=== PATIENT | male | born 1950 | race Caucasian/White ===

== ENCOUNTER 2021-07-14 09:19 | Inpatient (IN) ==
[2021-07-14 10:40] LABS: Mean Corpuscular HGB Conc 33.6 g/dL (31.6-35.5); Mean Corpuscular Hemoglobin 34.4 pg (28.0-33.3); Mean Corpuscular Volume 102.2 fL (83.0-100.0); Red Cell Distribution Width 15.7 % (11.5-14.5)
[2021-07-14 10:42] LABS: Hematocrit 22.9 % (37.5-50.1); Hemoglobin 7.7 g/dL (12.9-16.9); Immature Platelets 12.3 % (1.1-6.1); Red Blood Count 2.24 M/mcL (4.19-5.50); White Blood Count 1.4 K/mcL (4.3-11.1)
[2021-07-14 10:47] LABS: Platelet Count 6 K/mcL (140-400)
[2021-07-14 10:51] LABS: BUN/Creatinine Ratio 16 (6-26); Blood Urea Nitrogen 14 mg/dL (8-23); Calcium 9.4 mg/dL (8.6-10.3); Carbon Dioxide 26 mEq/L (23-29); Chloride 101 mEq/L (98-107); Glucose 125 mg/dL (70-105); Osmolality,Calculated 282 (280-300); Potassium 3.8 mEq/L (3.5-5.1); Sodium 135 mEq/L (136-145); eGFR For African Americans > 60 (> 60); eGFR For Non-African Americans > 60 (> 60)
[2021-07-14] MEDS ORDERED: 0.9 % Sodium Chloride 250 ML ONE (11:17)
[2021-07-14] MEDS ORDERED: Piperacillin/Tazobactam 3.375 GM in 0.9 % Sodium Chloride Mini Bag 100 ML IVPB ONE (13:27)
[2021-07-14] MEDS ORDERED: 0.9 % Sodium Chloride 1,000 ML IVC ONE (13:27)
[2021-07-14 13:39] LABS: Alanine Aminotransferase 14 Units/L (7-52); Albumin 4.3 g/dL (3.5-5.7); Albumin/Globulin Ratio 1.6 (1.1-2.2); Alkaline Phosphatase 78 Units/L (34-104); Aspartate Amino Transferase 12 Units/L (13-39); Bilirubin,Indirect 0.4 mg/dL (0.0-1.0); Bilirubin,Total 0.4 mg/dL (0.3-1.0); Globulin 2.7 g/dL (2.4-3.5); Lipase 5 Units/L (11-82)
[2021-07-14 14:00] LABS: Bilirubin,Urine Negative (Negative); Blood,Urine Trace (Negative); Clarity,Urine Clear (Clear); Color,Urine Yellow (Yellow); Glucose,Urine (UA) Normal (Normal); Hyaline Casts,Urine Moderate per lpf (None Seen); Ketones,Urine Negative (Negative); Leukocyte Esterase,Urine Negative (Negative); Mucus,Urine Few per lpf (None-Few); Nitrite,Urine Negative (Negative); PH,Urine 6.5 pH Units (5.0-8.0); Protein,Urine Trace mg/dL (Neg-Trace); Specific Gravity,Urine 1.019 (1.010-1.025); Urobilinogen,Urine Normal (Normal); WBC,Urine 0-3 per hpf (0-3)
[2021-07-14] MEDS ORDERED: MOM Conc 10 ML UD.LIQ PO PRN (14:31)
[2021-07-14] MEDS ORDERED: Ondansetron ODT 4 MG TAB.RAPDIS SL PRN (14:31)
[2021-07-14] MEDS ORDERED: Naloxone 0.4 MG/ML INJ IVP PRN (14:31)
[2021-07-14] MEDS ORDERED: Melatonin 3 MG TABLET PO PRN (14:31)
[2021-07-14] MEDS ORDERED: Mag Hydrox/Al Hydrox/Simeth 30 ML UDC PO PRN (14:31)
[2021-07-14] MEDS: Levalbuterol Neb 1.25 MG/3 ML IH SCH ×3 (15:48→20:06)
[2021-07-14] MEDS: Vancomycin 1,250 MG/262.5 ML IV.SOLN IVPB SCH (16:26)
[2021-07-14] MEDS: MethylPREDNISolone 40 MG/ML VIAL IVP SCH (18:10)
[2021-07-15] MEDS: MethylPREDNISolone 40 MG/ML VIAL IVP SCH ×3 (00:17→15:05)
[2021-07-15] MEDS: Piperacillin/Tazobactam 3.375 GM in 0.9 % Sodium Chloride Mini Bag 100 ML IVPB SCH ×3 (00:18→16:20)
[2021-07-15 01:23] LABS: Adenovirus Not Detected (Not Detect); Bordetella Pertussis Not Detected (Not Detect); Chlamydophila pneumoniae Not Detected (Not Detect); Coronavirus 229E Not Detected (Not Detect); Coronavirus HKU1 Not Detected (Not Detect); Coronavirus NL63 Not Detected (Not Detect); Coronavirus OC43 Not Detected (Not Detect); Human Metapneumovirus Not Detected (Not Detect); Human Rhinovirus/Enterovirus Not Detected (Not Detect); Influenza A Subtype 2009 H1 Not Detected (Not Detect); Influenza B Not Detected (Not Detect); Mycoplasma pneumoniae Not Detected (Not Detect); Parainfluenza Virus 1 Not Detected (Not Detect); Parainfluenza Virus 2 Not Detected (Not Detect); Parainfluenza Virus 3 Not Detected (Not Detect); Parainfluenza Virus 4 Not Detected (Not Detect); Respiratory Syncytial Virus Not Detected (Not Detect); SARS-CoV-2 Not Detected (Not Detect)
[2021-07-15 01:30] LABS: Mean Corpuscular Hemoglobin 33.7 pg (28.0-33.3); Red Blood Count 1.81 M/mcL (4.19-5.50); Red Cell Distribution Width 15.5 % (11.5-14.5)
[2021-07-15 01:32] LABS: Hemoglobin 6.1 g/dL (12.9-16.9); Immature Platelets 2.8 % (1.1-6.1); Lymphocytes # 0.3 K/mcL (0.6-4.6); Lymphocytes % 44.4 %; Mean Corpuscular HGB Conc 33.9 g/dL (31.6-35.5); Mean Corpuscular Volume 99.4 fL (83.0-100.0); Mean Platelet Volume 11.2 fL (9.4-12.4); Monocytes # 0.2 K/mcL (0.0-1.3); Monocytes % 23.6 %; Neutrophils # 0.2 K/mcL (1.6-8.9); Nucleated Red Blood Cells 2.8 /100 WBC (0)
[2021-07-15 01:43] LABS: Platelet Count 29 K/mcL (140-400); White Blood Count 0.7 K/mcL (4.3-11.1)
[2021-07-15 02:01] LABS: Platelet Estimate Marked Decrease (Normal)
[2021-07-15 02:02] LABS: Microcytosis Present (Not Present)
[2021-07-15] MEDS ORDERED: 0.9 % Sodium Chloride 250 ML IVC SCH (02:15)
[2021-07-15 02:46] LABS: Alanine Aminotransferase 12 Units/L (7-52); Albumin 3.7 g/dL (3.5-5.7); Albumin/Globulin Ratio 1.5 (1.1-2.2); Alkaline Phosphatase 65 Units/L (34-104); Aspartate Amino Transferase 13 Units/L (13-39); BUN/Creatinine Ratio 18 (6-26); Bilirubin,Total 0.3 mg/dL (0.3-1.0); Blood Urea Nitrogen 14 mg/dL (8-23); Calcium 8.6 mg/dL (8.6-10.3); Carbon Dioxide 21 mEq/L (23-29); Chloride 103 mEq/L (98-107); Globulin 2.4 g/dL (2.4-3.5); Glucose 201 mg/dL (70-105); Osmolality,Calculated 284 (280-300); Potassium 3.6 mEq/L (3.5-5.1); Sodium 134 mEq/L (136-145); Total Protein 6.1 g/dL (6.4-8.9); eGFR For African Americans > 60 (> 60); eGFR For Non-African Americans > 60 (> 60)
[2021-07-15] MEDS: Vancomycin 1,250 MG/262.5 ML IV.SOLN IVPB SCH ×2 (03:14→15:16)
[2021-07-15] MEDS: Levalbuterol Neb 1.25 MG/3 ML IH SCH ×4 (03:53→20:14)
[2021-07-15] MEDS: Acetaminophen 325 MG TABLET PO PRN ×2 (04:27→20:20)
[2021-07-15] MEDS ORDERED: Isovue-370 500 ML BOTTLE IVP ONE ×2 (08:53)
[2021-07-15] MEDS ORDERED: Isovue-370 500 ML BOTTLE PO ONE (09:10)
[2021-07-15 09:43] LABS: Red Cell Distribution Width 17.2 % (11.5-14.5)
[2021-07-15 09:45] LABS: Eosinophils % 0.7 %; Hematocrit 23.2 % (37.5-50.1); Hemoglobin 7.9 g/dL (12.9-16.9); Immature Platelets 4.5 % (1.1-6.1); Lymphocytes % 74.1 %; Mean Corpuscular HGB Conc 34.1 g/dL (31.6-35.5); Mean Corpuscular Hemoglobin 32.8 pg (28.0-33.3); Mean Corpuscular Volume 96.3 fL (83.0-100.0); Mean Platelet Volume 10.3 fL (9.4-12.4); Monocytes % 2.8 %; Neutrophils # 0.3 K/mcL (1.6-8.9); Nucleated Red Blood Cells 2.1 /100 WBC (0); Red Blood Count 2.41 M/mcL (4.19-5.50); Segmented Neutrophils % 22.4 %; White Blood Count 1.4 K/mcL (4.3-11.1)
[2021-07-15 09:55] LABS: Platelet Count 30 K/mcL (140-400)
[2021-07-15 10:14] LABS: Reactive Lymphocytes Present (Not Present)
[2021-07-15 10:17] LABS: Platelet Estimate Marked Decrease (Normal)
[2021-07-16] MEDS: MethylPREDNISolone 40 MG/ML VIAL IVP SCH ×2 (01:13→09:08)
[2021-07-16] MEDS: Piperacillin/Tazobactam 3.375 GM in 0.9 % Sodium Chloride Mini Bag 100 ML IVPB SCH ×2 (01:14→09:08)
[2021-07-16] MEDS: Levalbuterol Neb 1.25 MG/3 ML IH SCH ×3 (04:29→15:17)
[2021-07-16 04:37] LABS: Nucleated Red Blood Cells 2.4 /100 WBC (0); Red Cell Distribution Width 17.8 % (11.5-14.5)
[2021-07-16 04:39] LABS: Hematocrit 20.5 % (37.5-50.1); Immature Platelets 4.6 % (1.1-6.1); Lymphocytes # 0.9 K/mcL (0.6-4.6); Mean Corpuscular HGB Conc 34.1 g/dL (31.6-35.5); Mean Corpuscular Hemoglobin 32.7 pg (28.0-33.3); Mean Corpuscular Volume 95.8 fL (83.0-100.0); Red Blood Count 2.14 M/mcL (4.19-5.50); White Blood Count 1.3 K/mcL (4.3-11.1)
[2021-07-16 04:46] LABS: BUN/Creatinine Ratio 14 (6-26); Blood Urea Nitrogen 17 mg/dL (8-23); Carbon Dioxide 24 mEq/L (23-29); Chloride 104 mEq/L (98-107); Glucose 131 mg/dL (70-105); Osmolality,Calculated 287 (280-300); Platelet Count 20 K/mcL (140-400); Potassium 4.1 mEq/L (3.5-5.1); Sodium 137 mEq/L (136-145); eGFR For African Americans > 60 (> 60); eGFR For Non-African Americans > 60 (> 60)
[2021-07-16 07:53] LABS: Neutrophils # 0.3 K/mcL (1.6-8.9)
[2021-07-16 07:55] LABS: Platelet Estimate Marked Decrease (Normal); Reactive Lymphocytes Present (Not Present)
[2021-07-16 07:57] LABS: Anisocytosis 1+ (Not Present)
[2021-07-16] MEDS: Acetaminophen 325 MG TABLET PO PRN (12:18)
[2021-07-16 12:19] VITALS: BP 147/85; PULSE 76; TEMP 97.2; O2SAT 98
[2021-07-16] MEDS ORDERED: Budesonide/Formoterol 160/4.5 1 PUFF INH IH SCH (22:00)
== END 2021-07-16 16:00 | disposition home or self-care (01) | DRG 872 ==
LOC: EMEROOARM 09:19 → 3BNU 09:19 → 3NENU 14:31 → SUATTDRO 14:58 → 3NENU 15:45
PROVIDERS: ADMIT Internal Medicine; ATTEND Registered Nurse

== ENCOUNTER 2021-08-21 08:56 | Inpatient (IN) ==
[2021-08-21] MEDS ORDERED: Piperacillin/Tazobactam 3.375 GM in 0.9 % Sodium Chloride Mini Bag 100 ML IVPB ONE (10:05)
[2021-08-21] MEDS ORDERED: Vancomycin 1,250 MG/262.5 ML IV.SOLN IVPB ONE (10:15)
[2021-08-21 10:37] LABS: Hematocrit 19.4 % (37.5-50.1); Hemoglobin 6.5 g/dL (12.9-16.9); Lymphocytes # 0.4 K/mcL (0.6-4.6); Lymphocytes % 62.7 %; Mean Corpuscular HGB Conc 33.5 g/dL (31.6-35.5); Mean Corpuscular Hemoglobin 30.5 pg (28.0-33.3); Mean Corpuscular Volume 91.1 fL (83.0-100.0); Mean Platelet Volume 9.7 fL (9.4-12.4); Monocytes # 0.2 K/mcL (0.0-1.3); Monocytes % 33.9 %; Red Blood Count 2.13 M/mcL (4.19-5.50); Red Cell Distribution Width 16.6 % (11.5-14.5); Segmented Neutrophils % 3.4 %
[2021-08-21 10:43] LABS: Platelet Count 12 K/mcL (140-400); White Blood Count 0.6 K/mcL (4.3-11.1)
[2021-08-21] MEDS ORDERED: *HR* OxyCODONE/APAP 5/325 TABLET PO ONE (10:45)
[2021-08-21 11:05] LABS: BUN/Creatinine Ratio 29 (6-26); Blood Urea Nitrogen 38 mg/dL (8-23); Calcium 8.8 mg/dL (8.6-10.3); Carbon Dioxide 23 mEq/L (23-29); Chloride 91 mEq/L (98-107); Glucose 141 mg/dL (70-105); Osmolality,Calculated 273 (280-300); Potassium 4.3 mEq/L (3.5-5.1); Sodium 126 mEq/L (136-145); eGFR For African Americans > 60 (> 60); eGFR For Non-African Americans 55 (> 60)
[2021-08-21 11:10] LABS: Troponin I 0.15 ng/mL (< 0.04)
[2021-08-21 11:15] LABS: Platelet Estimate Marked Decrease (Normal); Reactive Lymphocytes Present (Not Present)
[2021-08-21] MEDS: *HR* FentaNYL PATCH 25 MCG PATCH TD SCH (11:44)
[2021-08-21] MEDS ORDERED: 0.9 % Sodium Chloride 1,000 ML IVC ONE (11:48)
[2021-08-21] MEDS ORDERED: 0.9 % Sodium Chloride 500 ML IVC ONE (12:07)
[2021-08-21] MEDS ORDERED: Naloxone 0.4 MG/ML INJ IVP PRN (12:19)
[2021-08-21] MEDS ORDERED: Ondansetron 4 MG/2 ML VIAL IVP PRN (12:19)
[2021-08-21] MEDS ORDERED: Acetaminophen 325 MG TABLET PO PRN (12:19)
[2021-08-21] MEDS: *HR* OxyCODONE Immed Rel 5 MG TABLET PO PRN (16:33)
[2021-08-21] MEDS ORDERED: Piperacillin/Tazobactam 3.375 GM in 0.9 % Sodium Chloride Mini Bag 100 ML IVPB SCH (19:00)
[2021-08-21] MEDS ORDERED: 0.9 % Sodium Chloride 250 ML ONE (19:45)
[2021-08-22] MEDS ORDERED: Piperacillin/Tazobactam 3.375 GM in 0.9 % Sodium Chloride Mini Bag 100 ML IVPB SCH (01:00)
[2021-08-22] MEDS: *HR* OxyCODONE Immed Rel 5 MG TABLET PO PRN ×3 (06:39→21:55)
[2021-08-22 06:52] LABS: Hematocrit 22.6 % (37.5-50.1); Hemoglobin 7.6 g/dL (12.9-16.9); Immature Granulocytes % 1.9 % (0-4); Immature Platelets 3.3 % (1.1-6.1); Lymphocytes % 67.3 %; Mean Corpuscular HGB Conc 33.6 g/dL (31.6-35.5); Mean Corpuscular Hemoglobin 30.6 pg (28.0-33.3); Mean Corpuscular Volume 91.1 fL (83.0-100.0); Mean Platelet Volume 8.5 fL (9.4-12.4); Monocytes % 28.8 %; Red Blood Count 2.48 M/mcL (4.19-5.50); Red Cell Distribution Width 16.3 % (11.5-14.5)
[2021-08-22 07:11] LABS: BUN/Creatinine Ratio 35 (6-26); Blood Urea Nitrogen 39 mg/dL (8-23); Calcium 8.7 mg/dL (8.6-10.3); Carbon Dioxide 24 mEq/L (23-29); Chloride 96 mEq/L (98-107); Glucose 148 mg/dL (70-105); Magnesium 1.6 mg/dL (1.6-2.6); Osmolality,Calculated 284 (280-300); Phosphorous 3.8 mg/dL (2.7-4.5); Potassium 3.8 mEq/L (3.5-5.1); Sodium 131 mEq/L (136-145); eGFR For African Americans > 60 (> 60); eGFR For Non-African Americans > 60 (> 60)
[2021-08-22] MEDS ORDERED: Perflutren Lipid Microsphere 1.3 ML in 0.9 % Sodium Chloride 8.7 ML IVP PRN (07:36)
[2021-08-22] MEDS ORDERED: D5% in Water 1,000 ML IVC PRN (07:37)
[2021-08-22] MEDS ORDERED: Dextrose 4 GM Chewable Tablets PO PRN ×2 (07:37)
[2021-08-22] MEDS ORDERED: *HR* Dextrose 50 % in Water (Syg) 50 ML SYRINGE IVP PRN (07:37)
[2021-08-22 07:41] LABS: Lymphocytes # 0.3 K/mcL (0.6-4.6); Monocytes # 0.1 K/mcL (0.0-1.3)
[2021-08-22 07:46] LABS: Platelet Count 4 K/mcL (140-400); White Blood Count 0.5 K/mcL (4.3-11.1)
[2021-08-22] MEDS ORDERED: 0.9 % Sodium Chloride 250 ML IVC SCH (08:00)
[2021-08-22] MEDS: Cefepime HCl 2,000 MG in 0.9 % Sodium Chloride 10 ML IVP SCH ×2 (08:00→17:02)
[2021-08-22 08:57] LABS: Platelet Estimate Marked Decrease (Normal)
[2021-08-22 08:58] LABS: Anisocytosis 1+ (Not Present)
[2021-08-22] MEDS ORDERED: Isovue-370 500 ML BOTTLE IVP ONE (11:21)
[2021-08-22] MEDS ORDERED: 0.9 % Sodium Chloride 1,000 ML IVC SCH (11:30)
[2021-08-22] MEDS: Insulin LISPRO 300 UNITS/3 ML VIAL SUBQ SCH ×2 (12:40→17:31)
[2021-08-22 17:46] LABS: Hematocrit 19.5 % (37.5-50.1); Hemoglobin 6.6 g/dL (12.9-16.9); Immature Granulocytes % 2.9 % (0-4); Lymphocytes # 0.2 K/mcL (0.6-4.6); Lymphocytes % 52.9 %; Mean Corpuscular HGB Conc 33.8 g/dL (31.6-35.5); Mean Corpuscular Hemoglobin 30.4 pg (28.0-33.3); Mean Corpuscular Volume 89.9 fL (83.0-100.0); Monocytes # 0.1 K/mcL (0.0-1.3); Monocytes % 41.2 %; Red Blood Count 2.17 M/mcL (4.19-5.50); Red Cell Distribution Width 16.5 % (11.5-14.5)
[2021-08-22 17:50] LABS: Platelet Count 3 K/mcL (140-400); White Blood Count 0.3 K/mcL (4.3-11.1)
[2021-08-22 18:23] LABS: Hypochromasia Present (Not Present); Platelet Estimate Marked Decrease (Normal)
[2021-08-23] MEDS: Cefepime HCl 2,000 MG in 0.9 % Sodium Chloride 10 ML IVP SCH ×2 (00:35→09:58)
[2021-08-23] MEDS: Insulin LISPRO 300 UNITS/3 ML VIAL SUBQ SCH ×4 (00:36→21:23)
[2021-08-23 03:04] LABS: Hematocrit 19.1 % (37.5-50.1); Hemoglobin 6.5 g/dL (12.9-16.9); Immature Platelets 0.7 % (1.1-6.1); Lymphocytes # 0.3 K/mcL (0.6-4.6); Mean Corpuscular Hemoglobin 30.7 pg (28.0-33.3); Mean Corpuscular Volume 90.1 fL (83.0-100.0); Mean Platelet Volume 9.6 fL (9.4-12.4); Monocytes # 0.1 K/mcL (0.0-1.3); Monocytes % 28.6 %; Red Blood Count 2.12 M/mcL (4.19-5.50); Red Cell Distribution Width 16.1 % (11.5-14.5); Segmented Neutrophils % 2.4 %
[2021-08-23 03:11] LABS: Platelet Count 22 K/mcL (140-400); White Blood Count 0.4 K/mcL (4.3-11.1)
[2021-08-23 03:20] LABS: BUN/Creatinine Ratio 37 (6-26); Blood Urea Nitrogen 33 mg/dL (8-23); Calcium 8.4 mg/dL (8.6-10.3); Carbon Dioxide 23 mEq/L (23-29); Chloride 97 mEq/L (98-107); Glucose 147 mg/dL (70-105); Magnesium 1.6 mg/dL (1.6-2.6); Osmolality,Calculated 282 (280-300); Phosphorous 4.3 mg/dL (2.7-4.5); Potassium 3.9 mEq/L (3.5-5.1); Sodium 131 mEq/L (136-145); eGFR For African Americans > 60 (> 60); eGFR For Non-African Americans > 60 (> 60)
[2021-08-23 03:26] LABS: Platelet Estimate Marked Decrease (Normal)
[2021-08-23] MEDS ORDERED: 0.9 % Sodium Chloride 250 ML ONE (07:04)
[2021-08-23] MEDS: *HR* OxyCODONE Immed Rel 5 MG TABLET PO PRN ×3 (07:16→17:25)
[2021-08-23] MEDS ORDERED: 0.9 % Sodium Chloride 250 ML IVC SCH (07:45)
[2021-08-23] MEDS: cefTRIAXone 2,000 MG in 0.9 % Sodium Chloride 20 ML IVPB SCH (14:20)
[2021-08-23 17:12] LABS: Hematocrit 24.4 % (37.5-50.1); Hemoglobin 8.3 g/dL (12.9-16.9)
[2021-08-23] MEDS: Pantoprazole 40 MG VIAL IVP SCH (17:26)
[2021-08-24] MEDS: *HR* OxyCODONE Immed Rel 5 MG TABLET PO PRN ×6 (00:36→21:59)
[2021-08-24 03:52] LABS: Hemoglobin 7.8 g/dL (12.9-16.9)
[2021-08-24 03:53] LABS: Hematocrit 22.9 % (37.5-50.1); Immature Platelets 2.4 % (1.1-6.1); Lymphocytes # 0.5 K/mcL (0.6-4.6); Lymphocytes % 80.3 %; Mean Corpuscular HGB Conc 34.1 g/dL (31.6-35.5); Mean Corpuscular Hemoglobin 30.1 pg (28.0-33.3); Mean Corpuscular Volume 88.4 fL (83.0-100.0); Monocytes # 0.1 K/mcL (0.0-1.3); Monocytes % 16.4 %; Red Blood Count 2.59 M/mcL (4.19-5.50); Segmented Neutrophils % 3.3 %
[2021-08-24 04:04] LABS: Platelet Count 8 K/mcL (140-400); Platelet Estimate Marked Decrease (Normal); White Blood Count 0.6 K/mcL (4.3-11.1)
[2021-08-24 04:11] LABS: Alanine Aminotransferase 41 Units/L (7-52); Albumin 2.7 g/dL (3.5-5.7); Albumin/Globulin Ratio 0.8 (1.1-2.2); Alkaline Phosphatase 120 Units/L (34-104); Aspartate Amino Transferase 23 Units/L (13-39); BUN/Creatinine Ratio 39 (6-26); Bilirubin,Total 0.8 mg/dL (0.3-1.0); Blood Urea Nitrogen 32 mg/dL (8-23); Calcium 9.1 mg/dL (8.6-10.3); Carbon Dioxide 28 mEq/L (23-29); Chloride 95 mEq/L (98-107); Globulin 3.4 g/dL (2.4-3.5); Glucose 122 mg/dL (70-105); Osmolality,Calculated 278 (280-300); Potassium 3.4 mEq/L (3.5-5.1); Sodium 130 mEq/L (136-145); Total Protein 6.1 g/dL (6.4-8.9); eGFR For African Americans > 60 (> 60); eGFR For Non-African Americans > 60 (> 60)
[2021-08-24 04:12] LABS: Magnesium 1.6 mg/dL (1.6-2.6); Phosphorous 3.5 mg/dL (2.7-4.5)
[2021-08-24] MEDS: Pantoprazole 40 MG VIAL IVP SCH (06:36)
[2021-08-24] MEDS: Insulin LISPRO 300 UNITS/3 ML VIAL SUBQ SCH ×4 (11:02→21:31)
[2021-08-24] MEDS: cefTRIAXone 2,000 MG in 0.9 % Sodium Chloride 20 ML IVPB SCH (11:03)
[2021-08-24] MEDS: *HR* FentaNYL PATCH 25 MCG PATCH TD SCH (12:17)
[2021-08-24 17:36] LABS: Hematocrit 23.2 % (37.5-50.1); Immature Granulocytes % 1.6 % (0-4)
[2021-08-24 17:38] LABS: Immature Platelets 1.2 % (1.1-6.1); Lymphocytes # 0.4 K/mcL (0.6-4.6); Lymphocytes % 67.7 %; Mean Corpuscular HGB Conc 34.5 g/dL (31.6-35.5); Mean Corpuscular Hemoglobin 30.5 pg (28.0-33.3); Mean Corpuscular Volume 88.5 fL (83.0-100.0); Mean Platelet Volume 9.5 fL (9.4-12.4); Monocytes # 0.2 K/mcL (0.0-1.3); Monocytes % 24.2 %; Red Blood Count 2.62 M/mcL (4.19-5.50); Red Cell Distribution Width 16.1 % (11.5-14.5); Segmented Neutrophils % 6.5 %
[2021-08-24 17:47] LABS: Platelet Count 7 K/mcL (140-400); White Blood Count 0.6 K/mcL (4.3-11.1)
[2021-08-24 18:11] LABS: Platelet Estimate Marked Decrease (Normal)
[2021-08-24] MEDS ORDERED: 0.9 % Sodium Chloride 250 ML IVC SCH (23:45)
[2021-08-25] MEDS ORDERED: 0.9 % Sodium Chloride 250 ML ONE (00:27)
[2021-08-25] MEDS: *HR* OxyCODONE Immed Rel 5 MG TABLET PO PRN ×5 (05:17→20:32)
[2021-08-25 05:39] LABS: Hematocrit 22.9 % (37.5-50.1); Hemoglobin 7.8 g/dL (12.9-16.9); Mean Corpuscular HGB Conc 34.1 g/dL (31.6-35.5)
[2021-08-25 05:41] LABS: Immature Platelets 2.2 % (1.1-6.1); Mean Corpuscular Volume 88.1 fL (83.0-100.0); Mean Platelet Volume 10.6 fL (9.4-12.4); Monocytes # 0.1 K/mcL (0.0-1.3); Monocytes % 20.6 %; Red Cell Distribution Width 15.9 % (11.5-14.5); Segmented Neutrophils % 6.4 %
[2021-08-25 05:51] LABS: Lymphocytes # 0.4 K/mcL (0.6-4.6); Platelet Count 12 K/mcL (140-400); White Blood Count 0.6 K/mcL (4.3-11.1)
[2021-08-25 05:57] LABS: Platelet Estimate Marked Decrease (Normal)
[2021-08-25 05:58] LABS: BUN/Creatinine Ratio 25 (6-26); Blood Urea Nitrogen 19 mg/dL (8-23); Calcium 8.5 mg/dL (8.6-10.3); Carbon Dioxide 28 mEq/L (23-29); Chloride 94 mEq/L (98-107); Glucose 105 mg/dL (70-105); Hypochromasia Present (Not Present); Magnesium 1.2 mg/dL (1.6-2.6); Osmolality,Calculated 275 (280-300); Phosphorous 3.2 mg/dL (2.7-4.5); Potassium 3.7 mEq/L (3.5-5.1); Sodium 131 mEq/L (136-145); eGFR For African Americans > 60 (> 60); eGFR For Non-African Americans > 60 (> 60)
[2021-08-25] MEDS ORDERED: 0.9 % Sodium Chloride 250 ML IVC SCH (06:00)
[2021-08-25] MEDS: cefTRIAXone 2,000 MG in 0.9 % Sodium Chloride 20 ML IVPB SCH (08:26)
[2021-08-25] MEDS: Insulin LISPRO 300 UNITS/3 ML VIAL SUBQ SCH ×4 (08:27→21:59)
[2021-08-26 02:48] LABS: Mean Corpuscular Hemoglobin 30.6 pg (28.0-33.3)
[2021-08-26 02:50] LABS: Hematocrit 19.4 % (37.5-50.1); Hemoglobin 6.6 g/dL (12.9-16.9); Immature Platelets 2.3 % (1.1-6.1); Lymphocytes # 0.3 K/mcL (0.6-4.6); Mean Corpuscular Volume 89.8 fL (83.0-100.0); Red Blood Count 2.16 M/mcL (4.19-5.50); Red Cell Distribution Width 15.9 % (11.5-14.5)
[2021-08-26 02:55] LABS: Platelet Count 4 K/mcL (140-400); White Blood Count 0.4 K/mcL (4.3-11.1)
[2021-08-26 03:03] LABS: BUN/Creatinine Ratio 22 (6-26); Blood Urea Nitrogen 16 mg/dL (8-23); Calcium 8.1 mg/dL (8.6-10.3); Carbon Dioxide 30 mEq/L (23-29); Chloride 93 mEq/L (98-107); Glucose 120 mg/dL (70-105); Magnesium 1.4 mg/dL (1.6-2.6); Osmolality,Calculated 274 (280-300); Phosphorous 3.4 mg/dL (2.7-4.5); Potassium 3.2 mEq/L (3.5-5.1); Sodium 131 mEq/L (136-145); eGFR For African Americans > 60 (> 60); eGFR For Non-African Americans > 60 (> 60)
[2021-08-26 03:54] LABS: Neutrophils # 0.1 K/mcL (1.6-8.9); Platelet Estimate Marked Decrease (Normal)
[2021-08-26 03:55] LABS: Hypochromasia Present (Not Present)
[2021-08-26] MEDS: *HR* OxyCODONE Immed Rel 5 MG TABLET PO PRN ×5 (04:45→20:32)
[2021-08-26] MEDS ORDERED: 0.9 % Sodium Chloride 250 ML ONE (05:53)
[2021-08-26] MEDS: Insulin LISPRO 300 UNITS/3 ML VIAL SUBQ SCH ×4 (07:51→20:27)
[2021-08-26] MEDS: cefTRIAXone 2,000 MG in 0.9 % Sodium Chloride 20 ML IVPB SCH (08:45)
[2021-08-26 13:29] LABS: Hemoglobin 9.2 g/dL (12.9-16.9); Immature Platelets 1.3 % (1.1-6.1); Mean Corpuscular HGB Conc 34.1 g/dL (31.6-35.5); Mean Corpuscular Hemoglobin 30.8 pg (28.0-33.3); Mean Corpuscular Volume 90.3 fL (83.0-100.0); Red Blood Count 2.99 M/mcL (4.19-5.50); Red Cell Distribution Width 15.3 % (11.5-14.5)
[2021-08-26 13:36] LABS: Platelet Count 5 K/mcL (140-400); White Blood Count 0.5 K/mcL (4.3-11.1)
[2021-08-26 14:09] LABS: Lymphocytes # 0.4 K/mcL (0.6-4.6); Monocytes # 0.1 K/mcL (0.0-1.3); Platelet Estimate Marked Decrease (Normal)
[2021-08-26] MEDS ORDERED: 0.9 % Sodium Chloride 250 ML IVC SCH (17:45)
[2021-08-27] MEDS: *HR* OxyCODONE Immed Rel 5 MG TABLET PO PRN ×4 (00:08→11:49)
[2021-08-27 06:45] LABS: Red Cell Distribution Width 15.6 % (11.5-14.5)
[2021-08-27 06:47] LABS: Hematocrit 22.3 % (37.5-50.1); Hemoglobin 7.6 g/dL (12.9-16.9); Immature Platelets 1.5 % (1.1-6.1); Lymphocytes # 0.3 K/mcL (0.6-4.6); Lymphocytes % 73.2 %; Mean Corpuscular HGB Conc 34.1 g/dL (31.6-35.5); Mean Corpuscular Hemoglobin 30.5 pg (28.0-33.3); Mean Corpuscular Volume 89.6 fL (83.0-100.0); Monocytes # 0.1 K/mcL (0.0-1.3); Monocytes % 19.5 %; Red Blood Count 2.49 M/mcL (4.19-5.50); Segmented Neutrophils % 7.3 %
[2021-08-27 07:05] LABS: BUN/Creatinine Ratio 23 (6-26); Blood Urea Nitrogen 15 mg/dL (8-23); Calcium 8.5 mg/dL (8.6-10.3); Carbon Dioxide 30 mEq/L (23-29); Chloride 93 mEq/L (98-107); Glucose 113 mg/dL (70-105); Magnesium 1.5 mg/dL (1.6-2.6); Osmolality,Calculated 272 (280-300); Phosphorous 3.2 mg/dL (2.7-4.5); Potassium 3.5 mEq/L (3.5-5.1); Sodium 130 mEq/L (136-145); eGFR For African Americans > 60 (> 60); eGFR For Non-African Americans > 60 (> 60)
[2021-08-27 07:13] LABS: Platelet Count 12 K/mcL (140-400); White Blood Count 0.4 K/mcL (4.3-11.1)
[2021-08-27 07:24] LABS: Platelet Estimate Marked Decrease (Normal)
[2021-08-27] MEDS: Insulin LISPRO 300 UNITS/3 ML VIAL SUBQ SCH ×2 (08:59→13:31)
[2021-08-27] MEDS: cefTRIAXone 2,000 MG in 0.9 % Sodium Chloride 20 ML IVPB SCH (09:27)
[2021-08-27] MEDS: *HR* FentaNYL PATCH 25 MCG PATCH TD SCH (12:05)
[2021-08-27 12:49] VITALS: BP 171/83; TEMP 98.2
[2021-08-27] MEDS ORDERED: Lidocaine -MPF 1% 5 ML AMPUL INFILT ONE (13:36)
[2021-08-27 14:10] VITALS: PULSE 98; O2SAT 98
[2021-08-27] MEDS ORDERED: Fluconazole 100 MG TABLET PO SCH (14:45)
== END 2021-08-27 16:47 | disposition home health service (06) | DRG 280 ==
LOC: 3ANU 08:56 → EMEROOARM 08:56 → SUATTDRO 12:19 → 3ANU 13:07 → 3NENU 08-22 15:18
PROVIDERS: ADMIT Internal Medicine; ATTEND Internal Medicine